=== PATIENT | male | born 1950 | race African-American/Black ===

== ENCOUNTER 2017-10-04 13:20 | Inpatient (IN) | payer MEDICARE, MEDICAID ==
[~2017-10-04] VITALS: Ht 172.7 cm; Wt 79.1 kg
[~2017-10-04 13:20] MED LIST: ACET-2178 PO; ASPI-986 PO; CALC0.253 PO; COR3 PO; DIPH25CA83 PO; DONE10TA43 PO; FAMO-134 PO; FERR325T23 PO; FOLI-43 PO; FURO-152 PO; INSU100V3 SUBCUT; KEPP500 PO; LISI10TA5 PO; MOM PO; SEVE800T8 PO
[2017-10-04] MEDS ORDERED: SODIUM CHLORIDE 0.9% 250 ML IV ONE (14:29)
[2017-10-04 15:51] LABS: HEMATOCRIT. 36.6 % (42.0-52.0); HEMOGLOBIN. 12.7 g/dL (14.0-18.0); MEAN CORPUSCULAR HEMOGLOBIN 30.1 pg (28.0-32.0); MEAN CORPUSCULAR VOLUME 86.8 fL (80.0-94.0); MEAN PLATELET VOLUME 8.3 fl (7.4-10.4); PLATELET 164 x1000/uL (130-400); RED BLOOD CELL COUNT 4.22 mill/uL (4.7-6.1); RED CELL DISTRIBUTION WIDTH 13.3 % (11.6-14.6)
[2017-10-04 16:08] LABS: CARBON DIOXIDE 29 mEq/L (21-32); CHLORIDE 99 mEq/L (98-107)
[2017-10-04 16:10] LABS: TROPONIN I < 0.02 ng/mL (0.00-0.04)
[2017-10-04 16:22] LABS: PLATELET ESTIMATE NORMAL
[2017-10-04 16:28] LABS: PROTHROMBIN TIME 10.4 sec (9.4-11.6)
[2017-10-04 20:00] VITALS: BP 86/50
[2017-10-04] MEDS ORDERED: ACETAMINOPHEN 325MG TABLET PO PRN (20:30)
[2017-10-04] MEDS ORDERED: ONDANSETRON HCL 4MG/2ML VIAL IV PRN (20:30)
[2017-10-04] MEDS ORDERED: DEXTROSE 50% WATER 50ML SYRINGE IV PRN (20:30)
[2017-10-04] MEDS: INSULIN LISPRO 100 UNITS/ML SUBCUT SCH (21:00)
[2017-10-04] MEDS: MIDODRINE HCL 2.5MG TABLET PO SCH (21:35)
[2017-10-04] MEDS: BLOOD SUGAR DIAGNOSTIC STRIP TEST SCH (21:36)
[2017-10-04 22:00] VITALS: BP 94/57
[2017-10-05] VITALS (12 sets, daily range): BP systolic 87–122; BP diastolic 43–85
[2017-10-05 06:46] LABS: HEMATOCRIT. 38.3 % (42.0-52.0); HEMOGLOBIN. 12.7 g/dL (14.0-18.0); MEAN CORPUSCULAR HEMOGLOBIN 29.6 pg (28.0-32.0); MEAN CORPUSCULAR VOLUME 89.3 fL (80.0-94.0); MEAN PLATELET VOLUME 8.5 fl (7.4-10.4); PLATELET 140 x1000/uL (130-400); RED BLOOD CELL COUNT 4.28 mill/uL (4.7-6.1); RED CELL DISTRIBUTION WIDTH 13.4 % (11.6-14.6)
[2017-10-05] MEDS: BLOOD SUGAR DIAGNOSTIC STRIP TEST SCH ×4 (07:30→21:17)
[2017-10-05] MEDS: INSULIN LISPRO 100 UNITS/ML SUBCUT SCH ×4 (08:00→21:00)
[2017-10-05] MEDS: ASPIRIN 81MG TABLET PO SCH (09:48)
[2017-10-05] MEDS: MIDODRINE HCL 2.5MG TABLET PO SCH ×2 (09:48→13:07)
[2017-10-05 17:46] LABS: PLATELET ESTIMATE NORMAL
[2017-10-06] VITALS (10 sets, daily range): BP systolic 103–147; BP diastolic 48–82
[2017-10-06] MEDS: BLOOD SUGAR DIAGNOSTIC STRIP TEST SCH ×4 (07:51→21:40)
[2017-10-06] MEDS: INSULIN LISPRO 100 UNITS/ML SUBCUT SCH ×4 (07:59→21:40)
[2017-10-06] MEDS: ASPIRIN 81MG TABLET PO SCH (09:18)
[2017-10-07] VITALS: BP 95/60
[2017-10-07 04:00] VITALS: BP 108/82
[2017-10-07 07:24] VITALS: BP 146/45
[2017-10-07] MEDS: INSULIN LISPRO 100 UNITS/ML SUBCUT SCH (08:00)
[2017-10-07] MEDS: BLOOD SUGAR DIAGNOSTIC STRIP TEST SCH (08:14)
[2017-10-07] MEDS: ASPIRIN 81MG TABLET PO SCH (08:17)
[2017-10-07 11:27] VITALS: BP 103/67
[2017-10-07 13:27] VITALS: BP 93/57
[2017-10-07 13:34] VITALS: BP 93/57
== END 2017-10-07 13:35 | DRG 466 ==
LOC: ER 13:24 → ENRESERV 16:07 → EDBEDREQSVC 17:09 → EDBEDREQ 17:09 → EDBEDREQSVC 17:24 → EDBEDREQ 17:26 → EDBEDREQTM 17:26 → 5EST 17:26 → EDBEDREQ 17:30 → EDBEDREQTM 17:30 → 5EST 10-06 13:17
PROVIDERS: ADMIT Hospitalist; ATTEND Hospitalist
PROC: 5A1D70Z Performance of Urinary Filtration, Intermittent, Less than 6 Hours Per Day (ICD-10-PCS; principal; 2017-10-06)
PROC: 02PYX3Z Removal of Infusion Device from Great Vessel, External Approach (ICD-10-PCS; 2017-10-07)
DX: T82.7XXA Infection and inflammatory reaction due to other cardiac and vascular devices, implants and grafts, initial encounter (principal); N18.6 End stage renal disease; A41.9 Sepsis, unspecified organism; E11.22 Type 2 diabetes mellitus with diabetic chronic kidney disease; I95.9 Hypotension, unspecified; I12.0 Hypertensive chronic kidney disease with stage 5 chronic kidney disease or end stage renal disease; Z86.73 Personal history of transient ischemic attack (TIA), and cerebral infarction without residual deficits; Z99.2 Dependence on renal dialysis; Z79.899 Other long term (current) drug therapy; Z79.82 Long term (current) use of aspirin; Z79.4 Long term (current) use of insulin; Y83.8 Other surgical procedures as the cause of abnormal reaction of the patient, or of later complication, without mention of misadventure at the time of the procedure; Y92.89 Other specified places as the place of occurrence of the external cause
CPT/HCPCS: 36415; 71010; 80048; 80053; 82962; 83605; 83880; 84484; 85025; 85610; 87040; 93005; 99285; J7030; J7050

== ENCOUNTER 2018-07-20 17:13 | Inpatient (IN) | payer MEDICARE, MEDICAID ==
[~2018-07-20] VITALS: Ht 167.6 cm; Wt 78.9 kg
[2018-07-20] MEDS ORDERED: ACETAMINOPHEN 325MG TABLET PO STA (17:52)
[2018-07-20] MEDS ORDERED: SODIUM CHLORIDE 0.9% 1,000 ML IV ONE (17:52)
[2018-07-20] MEDS ORDERED: PIPERACILLIN/TAZ 3.375G PREMIX 50 ML IV ONE (18:00)
[2018-07-20] MEDS ORDERED: VANCOMYCIN 1 G PREMIX 200 ML IV ONE (18:00)
[2018-07-20 18:56] LABS: HEMATOCRIT. 36.5 % (42.0-52.0); HEMOGLOBIN. 12.5 g/dL (14.0-18.0); MEAN CORPUSCULAR HEMOGLOBIN 28.9 pg (28.0-32.0); MEAN CORPUSCULAR VOLUME 83.9 fL (80.0-94.0); MEAN PLATELET VOLUME 7.8 fl (7.4-10.4); PLATELET 127 x1000/uL (130-400); RED BLOOD CELL COUNT 4.35 mill/uL (4.7-6.1); RED CELL DISTRIBUTION WIDTH 13.1 % (11.6-14.6)
[2018-07-20 19:00] LABS: PROTHROMBIN TIME 10.4 sec (9.1-11.1)
[2018-07-20 19:01] LABS: CHLORIDE 99 mEq/L (98-107)
[2018-07-20] MEDS ORDERED: ONDANSETRON HCL 4MG/2ML INJ IV PRN (20:30)
[2018-07-20] MEDS ORDERED: DIPHENHYDRAMINE 50MG/ML VIAL IV PRN (20:30)
[2018-07-20 21:48] LABS: PLATELET ESTIMATE SLIGHTLY DECREASED
[2018-07-20 22:50] VITALS: BP 103/54
[2018-07-20 23:22] VITALS: BP 103/54
[2018-07-21 04:00] VITALS: BP 134/73
[2018-07-21] MEDS ORDERED: DEXTROSE 50% WATER 50ML SYRINGE IV PRN (05:45)
[2018-07-21] MEDS: INSULIN LISPRO 100 UNITS/ML SUBCUT SCH ×4 (06:15→21:06)
[2018-07-21] MEDS: BLOOD SUGAR DIAGNOSTIC STRIP TEST SCH ×4 (06:15→21:01)
[2018-07-21 07:52] VITALS: BP 105/56
[2018-07-21] MEDS: ENOXAPARIN 30MG/0.3ML SYR SUBCUT SCH (08:14)
[2018-07-21] MEDS ORDERED: HEPARIN SODIUM 1,000 UNIT/1ML VIAL IV SCH ×2 (11:00)
[2018-07-21 11:16] LABS: BASOPHILS % 0.4 % (0.0-2.0); EOSINOPHILS % 0.1 % (0.0-5.0); HEMATOCRIT. 32.2 % (42.0-52.0); HEMOGLOBIN. 11.2 g/dL (14.0-18.0); LYMPHOCYTES % 7.2 % (20.0-50.0); MEAN CORPUSCULAR HEMOGLOBIN 29.1 pg (28.0-32.0); MEAN PLATELET VOLUME 8.2 fl (7.4-10.4); MONOCYTES % 6.9 % (2.0-8.0); NEUTROPHILS % 85.4 % (40.0-76.0); PLATELET 105 x1000/uL (130-400); RED BLOOD CELL COUNT 3.83 mill/uL (4.7-6.1); RED CELL DISTRIBUTION WIDTH 13.2 % (11.6-14.6)
[2018-07-21 11:52] VITALS: BP 111/57
[2018-07-21] MEDS: DEXT 5%/0.45% NACL 1000ML 1,000 ML IV SCH (13:53)
[2018-07-21] MEDS ORDERED: PIPERACILLIN/TAZOBACTAM 2.25 G in DEXTROSE 5% WATER 50 ML IV SCH (14:00)
[2018-07-21 16:00] VITALS: BP 89/44
[2018-07-21] MEDS ORDERED: VANCOMYCIN 1 G PREMIX 200 ML IV NR (16:00)
[2018-07-21] MEDS ORDERED: VANCOMYCIN 1250MG in DEXTROSE 5% WATER 250ML IV NR (16:00)
[2018-07-21 18:00] VITALS: BP 100/56
[2018-07-21 20:00] VITALS: BP 110/54
[2018-07-21] MEDS ORDERED: PIPERACILLIN/TAZ 2.25G PREMIX 50 ML IV SCH (22:00)
[2018-07-22] VITALS: BP 102/59
[2018-07-22 04:00] VITALS: BP 100/52
[2018-07-22] MEDS: BLOOD SUGAR DIAGNOSTIC STRIP TEST SCH ×4 (06:38→21:00)
[2018-07-22] MEDS: INSULIN LISPRO 100 UNITS/ML SUBCUT SCH ×4 (06:38→21:06)
[2018-07-22 07:35] LABS: HEMATOCRIT. 32.6 % (42.0-52.0); HEMOGLOBIN. 11.2 g/dL (14.0-18.0); MEAN CORPUSCULAR HEMOGLOBIN 29.1 pg (28.0-32.0); MEAN CORPUSCULAR VOLUME 84.6 fL (80.0-94.0); MEAN PLATELET VOLUME 7.7 fl (7.4-10.4); PLATELET 106 x1000/uL (130-400); RED BLOOD CELL COUNT 3.86 mill/uL (4.7-6.1); RED CELL DISTRIBUTION WIDTH 13.3 % (11.6-14.6)
[2018-07-22 08:00] VITALS: BP 104/50
[2018-07-22] MEDS: ENOXAPARIN 30MG/0.3ML SYR SUBCUT SCH (08:51)
[2018-07-22 12:00] VITALS: BP 106/58
[2018-07-22] MEDS: DEXT 5%/0.45% NACL 1000ML 1,000 ML IV SCH (12:35)
[2018-07-22 14:27] LABS: PLATELET ESTIMATE SLIGHTLY DECREASED
[2018-07-22 16:00] VITALS: BP 101/66
[2018-07-22 20:00] VITALS: BP 97/49
[2018-07-22] MEDS: ACETAMINOPHEN 325MG TABLET PO PRN (21:26)
[2018-07-23] VITALS (7 sets, daily range): BP systolic 101–115; BP diastolic 53–68
[2018-07-23] MEDS: DEXT 5%/0.45% NACL 1000ML 1,000 ML IV SCH ×2 (05:17→21:30)
[2018-07-23] MEDS: BLOOD SUGAR DIAGNOSTIC STRIP TEST SCH ×4 (06:10→20:53)
[2018-07-23 07:23] LABS: HEMATOCRIT. 33.7 % (42.0-52.0); HEMOGLOBIN. 11.3 g/dL (14.0-18.0); MEAN CORPUSCULAR HEMOGLOBIN 29.2 pg (28.0-32.0); MEAN CORPUSCULAR VOLUME 86.8 fL (80.0-94.0); MEAN PLATELET VOLUME 7.9 fl (7.4-10.4); PLATELET 61 x1000/uL (130-400); RED BLOOD CELL COUNT 3.88 mill/uL (4.7-6.1); RED CELL DISTRIBUTION WIDTH 13.4 % (11.6-14.6)
[2018-07-23] MEDS: INSULIN LISPRO 100 UNITS/ML SUBCUT SCH ×4 (07:40→21:01)
[2018-07-23] MEDS: ENOXAPARIN 30MG/0.3ML SYR SUBCUT SCH (08:05)
[2018-07-23 12:59] LABS: PLATELET ESTIMATE DECREASED
[2018-07-23] MEDS ORDERED: VANCOMYCIN 1 G PREMIX 200 ML IV SCH (13:30)
[2018-07-23] MEDS ORDERED: LIDOCAINE HCL/PF 1% 10 MG/ML 30ML VIAL ONE (14:42)
[2018-07-23] MEDS ORDERED: SODIUM BICARBONATE 4% (2.4MEQ) 5ML VIAL IV ONE (14:43)
[2018-07-24] VITALS (7 sets, daily range): BP systolic 98–163; BP diastolic 54–78
[2018-07-24 07:05] LABS: BASOPHILS % 0.4 % (0.0-2.0); EOSINOPHILS % 3.5 % (0.0-5.0); HEMATOCRIT. 30.5 % (42.0-52.0); HEMOGLOBIN. 10.5 g/dL (14.0-18.0); LYMPHOCYTES % 13.1 % (20.0-50.0); MEAN CORPUSCULAR HEMOGLOBIN 29.4 pg (28.0-32.0); MEAN CORPUSCULAR VOLUME 85.1 fL (80.0-94.0); MEAN PLATELET VOLUME 7.8 fl (7.4-10.4); MONOCYTES % 11.9 % (2.0-8.0); NEUTROPHILS % 71.1 % (40.0-76.0); PLATELET 131 x1000/uL (130-400); RED BLOOD CELL COUNT 3.58 mill/uL (4.7-6.1); RED CELL DISTRIBUTION WIDTH 13.1 % (11.6-14.6)
[2018-07-24] MEDS: BLOOD SUGAR DIAGNOSTIC STRIP TEST SCH ×4 (07:10→20:35)
[2018-07-24] MEDS: INSULIN LISPRO 100 UNITS/ML SUBCUT SCH ×4 (07:40→20:34)
[2018-07-25 00:05] VITALS: BP 138/60
[2018-07-25] MEDS: BLOOD SUGAR DIAGNOSTIC STRIP TEST SCH ×4 (05:57→20:31)
[2018-07-25 08:00] VITALS: BP 131/61
[2018-07-25] MEDS: INSULIN LISPRO 100 UNITS/ML SUBCUT SCH ×4 (12:00→21:00)
[2018-07-25 12:21] VITALS: BP 131/61
[2018-07-25] MEDS: DEXT 5%/0.45% NACL 1000ML 1,000 ML IV SCH ×2 (13:30→18:11)
[2018-07-25] MEDS ORDERED: DAPTOMYCIN XX SCH (13:45)
[2018-07-25] MEDS ORDERED: [UNRECOGNIZED DRUG - OTHER] XX SCH (13:45)
[2018-07-25 16:21] VITALS: BP 116/62
[2018-07-25] MEDS: DAPTOMYCIN 450 MG in SODIUM CHLORIDE 0.9% 50 ML IV SCH (18:11)
[2018-07-25 20:00] VITALS: BP 118/65
[2018-07-26] VITALS: BP 147/56
[2018-07-26 04:00] VITALS: BP 147/69
[2018-07-26] MEDS: BLOOD SUGAR DIAGNOSTIC STRIP TEST SCH ×4 (05:44→20:39)
[2018-07-26] MEDS: INSULIN LISPRO 100 UNITS/ML SUBCUT SCH ×4 (05:48→21:00)
[2018-07-26 07:01] LABS: BASOPHILS % 0.6 % (0.0-2.0); EOSINOPHILS % 4.1 % (0.0-5.0); HEMATOCRIT. 30.1 % (42.0-52.0); HEMOGLOBIN. 10.3 g/dL (14.0-18.0); LYMPHOCYTES % 18.5 % (20.0-50.0); MEAN CORPUSCULAR HEMOGLOBIN 29.1 pg (28.0-32.0); MEAN CORPUSCULAR VOLUME 84.5 fL (80.0-94.0); MEAN PLATELET VOLUME 7.5 fl (7.4-10.4); MONOCYTES % 11.5 % (2.0-8.0); NEUTROPHILS % 65.3 % (40.0-76.0); PLATELET 155 x1000/uL (130-400); RED BLOOD CELL COUNT 3.56 mill/uL (4.7-6.1); RED CELL DISTRIBUTION WIDTH 13.4 % (11.6-14.6)
[2018-07-26 08:00] VITALS: BP 139/77
[2018-07-26 08:10] LABS: CREATINE KINASE 35 IU/L (39-308)
[2018-07-26] MEDS ORDERED: SODIUM BICARBONATE 4% (2.4MEQ) 5ML VIAL IV ONE (10:35)
[2018-07-26] MEDS ORDERED: LIDOCAINE HCL 1% 10 MG/ML 10ML VIAL ONE (10:36)
[2018-07-26 12:00] VITALS: BP 124/54
[2018-07-26 16:00] VITALS: BP 122/60
[2018-07-26 20:00] VITALS: BP 137/83
[2018-07-27] VITALS: BP 150/73
[2018-07-27 04:00] VITALS: BP 134/68
[2018-07-27] MEDS: BLOOD SUGAR DIAGNOSTIC STRIP TEST SCH ×4 (06:12→20:01)
[2018-07-27] MEDS: INSULIN LISPRO 100 UNITS/ML SUBCUT SCH ×4 (06:15→20:46)
[2018-07-27 06:44] LABS: BASOPHILS % 0.7 % (0.0-2.0); EOSINOPHILS % 4.4 % (0.0-5.0); HEMOGLOBIN. 9.8 g/dL (14.0-18.0); LYMPHOCYTES % 19.4 % (20.0-50.0); MEAN CORPUSCULAR HEMOGLOBIN 29.3 pg (28.0-32.0); MEAN CORPUSCULAR VOLUME 83.9 fL (80.0-94.0); MEAN PLATELET VOLUME 7.2 fl (7.4-10.4); MONOCYTES % 13.2 % (2.0-8.0); NEUTROPHILS % 62.3 % (40.0-76.0); PLATELET 161 x1000/uL (130-400); RED BLOOD CELL COUNT 3.34 mill/uL (4.7-6.1)
[2018-07-27 08:00] VITALS: BP 144/71
[2018-07-27] MEDS: DAPTOMYCIN 450 MG in SODIUM CHLORIDE 0.9% 50 ML IV SCH (09:00)
[2018-07-27 12:00] VITALS: BP 134/77
[2018-07-27 16:37] VITALS: BP 143/72
[2018-07-27] MEDS: ENOXAPARIN 30MG/0.3ML SYR SUBCUT SCH (17:58)
[2018-07-27 20:00] VITALS: BP 143/68
[2018-07-28] VITALS: BP 143/74
[2018-07-28 04:00] VITALS: BP 119/51
[2018-07-28] MEDS: INSULIN LISPRO 100 UNITS/ML SUBCUT SCH ×4 (06:10→21:00)
[2018-07-28] MEDS: BLOOD SUGAR DIAGNOSTIC STRIP TEST SCH ×4 (06:10→21:00)
[2018-07-28 08:00] VITALS: BP 143/70
[2018-07-28 12:10] VITALS: BP 135/74
[2018-07-28] MEDS: ENOXAPARIN 30MG/0.3ML SYR SUBCUT SCH (17:39)
[2018-07-28 18:30] VITALS: BP 141/70
[2018-07-28 20:00] VITALS: BP 145/74
[2018-07-29] VITALS: BP 148/80
[2018-07-29 04:00] VITALS: BP 138/76
[2018-07-29] MEDS: BLOOD SUGAR DIAGNOSTIC STRIP TEST SCH ×4 (05:20→21:00)
[2018-07-29 06:04] LABS: BASOPHILS % 0.5 % (0.0-2.0); EOSINOPHILS % 5.4 % (0.0-5.0); HEMATOCRIT. 28.9 % (42.0-52.0); HEMOGLOBIN. 10.2 g/dL (14.0-18.0); LYMPHOCYTES % 20.3 % (20.0-50.0); MEAN CORPUSCULAR HEMOGLOBIN 29.4 pg (28.0-32.0); MEAN CORPUSCULAR VOLUME 83.5 fL (80.0-94.0); MEAN PLATELET VOLUME 7.4 fl (7.4-10.4); MONOCYTES % 10.1 % (2.0-8.0); NEUTROPHILS % 63.7 % (40.0-76.0); PLATELET 228 x1000/uL (130-400); RED BLOOD CELL COUNT 3.46 mill/uL (4.7-6.1); RED CELL DISTRIBUTION WIDTH 13.3 % (11.6-14.6)
[2018-07-29] MEDS: INSULIN LISPRO 100 UNITS/ML SUBCUT SCH ×4 (06:05→21:00)
[2018-07-29 08:00] VITALS: BP 146/77
[2018-07-29] MEDS: DAPTOMYCIN 450 MG in SODIUM CHLORIDE 0.9% 50 ML IV SCH (08:40)
[2018-07-29 12:00] VITALS: BP 134/50
[2018-07-29 16:00] VITALS: BP 143/78
[2018-07-29] MEDS: ENOXAPARIN 30MG/0.3ML SYR SUBCUT SCH (16:48)
[2018-07-29 20:00] VITALS: BP 134/72
[2018-07-29] MEDS ORDERED: EPOETIN ALFA 10000UNITS/ML VIAL SUBCUT SCH (21:00)
[2018-07-30] VITALS: BP 143/68
[2018-07-30 04:00] VITALS: BP 140/72
[2018-07-30] MEDS: BLOOD SUGAR DIAGNOSTIC STRIP TEST SCH ×4 (06:39→21:00)
[2018-07-30] MEDS: INSULIN LISPRO 100 UNITS/ML SUBCUT SCH ×3 (06:39→17:40)
[2018-07-30 07:28] LABS: INR 1.1; PARTIAL THROMBOPLASTIN TIME 38.3 sec (23.4-31.0); PROTHROMBIN TIME 10.9 sec (9.1-11.1)
[2018-07-30 08:00] VITALS: BP 134/56
[2018-07-30 12:00] VITALS: BP 118/62
[2018-07-30 16:00] VITALS: BP 133/78
[2018-07-30] MEDS: ENOXAPARIN 30MG/0.3ML SYR SUBCUT SCH (18:47)
[2018-07-30 20:00] VITALS: BP 138/85
[2018-07-31] VITALS (7 sets, daily range): BP systolic 130–157; BP diastolic 53–87
[2018-07-31] MEDS: BLOOD SUGAR DIAGNOSTIC STRIP TEST SCH ×4 (07:10→21:00)
[2018-07-31] MEDS: INSULIN LISPRO 100 UNITS/ML SUBCUT SCH ×4 (07:40→22:12)
[2018-07-31] MEDS: DAPTOMYCIN 450 MG in SODIUM CHLORIDE 0.9% 50 ML IV SCH (11:18)
[2018-07-31] MEDS: ENOXAPARIN 30MG/0.3ML SYR SUBCUT SCH (18:14)
[2018-08-01 04:00] VITALS: BP 136/71
[2018-08-01] MEDS: BLOOD SUGAR DIAGNOSTIC STRIP TEST SCH ×4 (06:42→21:15)
[2018-08-01] MEDS: INSULIN LISPRO 100 UNITS/ML SUBCUT SCH ×4 (06:43→21:00)
[2018-08-01 06:46] LABS: BASOPHILS % 0.4 % (0.0-2.0); EOSINOPHILS % 2.2 % (0.0-5.0); HEMATOCRIT. 30.8 % (42.0-52.0); HEMOGLOBIN. 10.6 g/dL (14.0-18.0); LYMPHOCYTES % 11.6 % (20.0-50.0); MEAN CORPUSCULAR HEMOGLOBIN 28.5 pg (28.0-32.0); MEAN CORPUSCULAR VOLUME 83.1 fL (80.0-94.0); MEAN PLATELET VOLUME 7.3 fl (7.4-10.4); MONOCYTES % 7.9 % (2.0-8.0); NEUTROPHILS % 77.9 % (40.0-76.0); PLATELET 222 x1000/uL (130-400); RED BLOOD CELL COUNT 3.71 mill/uL (4.7-6.1); RED CELL DISTRIBUTION WIDTH 13.3 % (11.6-14.6)
[2018-08-01 08:00] VITALS: BP 125/51
[2018-08-01 12:00] VITALS: BP 133/86
[2018-08-01] MEDS ORDERED: HEPARIN SODIUM 1,000 UNIT/1ML VIAL IV SCH (12:15)
[2018-08-01 16:00] VITALS: BP 173/66
[2018-08-01] MEDS: ENOXAPARIN 30MG/0.3ML SYR SUBCUT SCH (18:12)
[2018-08-01 20:04] VITALS: BP 166/80
[2018-08-02] VITALS: BP 150/70
[2018-08-02 04:00] VITALS: BP 169/75
[2018-08-02] MEDS: BLOOD SUGAR DIAGNOSTIC STRIP TEST SCH ×4 (07:10→20:22)
[2018-08-02] MEDS: INSULIN LISPRO 100 UNITS/ML SUBCUT SCH ×4 (07:40→20:22)
[2018-08-02 08:00] VITALS: BP 140/91
[2018-08-02] MEDS ORDERED: LIDOCAINE HCL 1% 10 MG/ML 10ML VIAL ONE ×2 (08:08→11:45)
[2018-08-02] MEDS ORDERED: THROMBIN (BOVINE) 5000 UNITS/VIAL TOP ONE ×2 (08:08→11:45)
[2018-08-02] MEDS ORDERED: BACITRACIN ZINC 15GM TUBE TOP ONE ×2 (08:08→11:44)
[2018-08-02] MEDS ORDERED: BUPIVACAINE HCL/PF 0.5% (5MG/ML) 10ML ONE ×2 (08:09→11:44)
[2018-08-02] MEDS ORDERED: HEPARIN SODIUM 1,000 UNIT/1ML VIAL IV ONE ×2 (08:09→11:45)
[2018-08-02] MEDS ORDERED: NORMAL SALINE 0.9% 10 ML SYR ONE ×2 (08:09→11:45)
[2018-08-02] MEDS ORDERED: GELATIN SPONGE,COMPRESSED SZ 100 ONE ×2 (08:10→11:45)
[2018-08-02] MEDS ORDERED: BACITRACIN 50,000 UNITS/VIAL ONE ×2 (08:10→11:31)
[2018-08-02] MEDS ORDERED: SODIUM CHLORIDE 0.9% 1,000 ML ONE (08:10)
[2018-08-02 12:00] VITALS: BP 164/86
[2018-08-02] MEDS ORDERED: PROPOFOL 200MG/20ML VIAL IV ONE ×2 (12:34→13:37)
[2018-08-02] MEDS ORDERED: FENTANYL CITRATE/PF 50MCG/ML 2ML VIAL ONE ×2 (12:34→13:38)
[2018-08-02] MEDS ORDERED: MIDAZOLAM HCL 2 MG/2 ML VIAL ONE (12:34)
[2018-08-02] MEDS ORDERED: ROCURONIUM BROMIDE 10MG/ML VIAL 5ML IV ONE (13:11)
[2018-08-02] MEDS ORDERED: DEXAMETHASONE 4MG/ML 1ML VIAL ONE (13:11)
[2018-08-02] MEDS ORDERED: ONDANSETRON HCL 4MG/2ML INJ ONE (13:11)
[2018-08-02] MEDS ORDERED: LABETALOL 5MG/ML SYR 20 MG/4 ML SYRINGE IV PRN (13:15)
[2018-08-02] MEDS ORDERED: ONDANSETRON HCL 4MG/2ML INJ IV PRN (13:15)
[2018-08-02] MEDS ORDERED: HYDROMORPHONE HCL/PF 2MG/ML CPJ IV PRN (13:15)
[2018-08-02] MEDS ORDERED: MEPERIDINE HCL/PF 25MG/ML CPJ IV PRN (13:15)
[2018-08-02] MEDS ORDERED: GLYCOPYRROLATE 0.2 MG/ML 2ML VIAL ONE (14:15)
[2018-08-02] MEDS ORDERED: NEOSTIGMINE METHYLSULFATE 1MG/ML 10 ML VIAL ONE (14:15)
[2018-08-02] MEDS ORDERED: LABETALOL HCL 5MG/ML VIAL 20ML IV ONE (14:40)
[2018-08-02] MEDS: ENOXAPARIN 30MG/0.3ML SYR SUBCUT SCH (17:00)
[2018-08-02] MEDS: DAPTOMYCIN 450 MG in SODIUM CHLORIDE 0.9% 50 ML IV SCH (19:06)
[2018-08-02 20:00] VITALS: BP 150/79
[2018-08-03] VITALS: BP 149/80
[2018-08-03 04:00] VITALS: BP 137/76
[2018-08-03] MEDS: BLOOD SUGAR DIAGNOSTIC STRIP TEST SCH ×4 (06:20→20:24)
[2018-08-03] MEDS: INSULIN LISPRO 100 UNITS/ML SUBCUT SCH ×4 (06:23→20:43)
[2018-08-03 08:00] VITALS: BP 120/73
[2018-08-03 10:24] LABS: HEMOGLOBIN. 10.3 g/dL (14.0-18.0); MEAN CORPUSCULAR HEMOGLOBIN 28.7 pg (28.0-32.0); MEAN CORPUSCULAR VOLUME 83.7 fL (80.0-94.0); MEAN PLATELET VOLUME 7.6 fl (7.4-10.4); PLATELET 238 x1000/uL (130-400); RED BLOOD CELL COUNT 3.59 mill/uL (4.7-6.1); RED CELL DISTRIBUTION WIDTH 13.3 % (11.6-14.6)
[2018-08-03 11:01] LABS: PLATELET ESTIMATE NORMAL
[2018-08-03 12:00] VITALS: BP 112/74
[2018-08-03 16:00] VITALS: BP 115/65
[2018-08-03] MEDS: ENOXAPARIN 30MG/0.3ML SYR SUBCUT SCH (17:07)
[2018-08-03 20:00] VITALS: BP 100/61
[2018-08-04] VITALS: BP 111/75
[2018-08-04 04:00] VITALS: BP 101/69
[2018-08-04 06:31] LABS: BASOPHILS % 0.3 % (0.0-2.0); EOSINOPHILS % 0.5 % (0.0-5.0); HEMATOCRIT. 29.3 % (42.0-52.0); HEMOGLOBIN. 10.1 g/dL (14.0-18.0); LYMPHOCYTES % 7.7 % (20.0-50.0); MEAN CORPUSCULAR HEMOGLOBIN 29.1 pg (28.0-32.0); MEAN PLATELET VOLUME 7.3 fl (7.4-10.4); MONOCYTES % 8.9 % (2.0-8.0); NEUTROPHILS % 82.6 % (40.0-76.0); PLATELET 220 x1000/uL (130-400); RED BLOOD CELL COUNT 3.48 mill/uL (4.7-6.1); RED CELL DISTRIBUTION WIDTH 13.4 % (11.6-14.6)
[2018-08-04] MEDS: INSULIN LISPRO 100 UNITS/ML SUBCUT SCH ×4 (06:35→20:52)
[2018-08-04] MEDS: BLOOD SUGAR DIAGNOSTIC STRIP TEST SCH ×4 (06:35→20:36)
[2018-08-04 08:00] VITALS: BP 120/67
[2018-08-04 16:00] VITALS: BP 116/68
[2018-08-04] MEDS: ENOXAPARIN 30MG/0.3ML SYR SUBCUT SCH (18:17)
[2018-08-04] MEDS: ACETAMINOPHEN 325MG TABLET PO PRN (19:33)
[2018-08-04] MEDS: DAPTOMYCIN 450 MG in SODIUM CHLORIDE 0.9% 50 ML IV SCH (19:53)
[2018-08-04 20:00] VITALS: BP 136/73
[2018-08-05] VITALS (7 sets, daily range): BP systolic 115–151; BP diastolic 61–86
[2018-08-05] MEDS: INSULIN LISPRO 100 UNITS/ML SUBCUT SCH ×3 (06:22→16:23)
[2018-08-05] MEDS: BLOOD SUGAR DIAGNOSTIC STRIP TEST SCH ×3 (06:22→16:23)
[2018-08-05 07:35] LABS: EOSINOPHILS % 1.1 % (0.0-5.0); HEMATOCRIT. 29.2 % (42.0-52.0); LYMPHOCYTES % 14.4 % (20.0-50.0); MEAN CORPUSCULAR HEMOGLOBIN 28.9 pg (28.0-32.0); MEAN CORPUSCULAR VOLUME 84.7 fL (80.0-94.0); MEAN PLATELET VOLUME 7.3 fl (7.4-10.4); MONOCYTES % 11.3 % (2.0-8.0); NEUTROPHILS % 72.2 % (40.0-76.0); PLATELET 189 x1000/uL (130-400); RED BLOOD CELL COUNT 3.44 mill/uL (4.7-6.1); RED CELL DISTRIBUTION WIDTH 13.4 % (11.6-14.6)
[2018-08-05] MEDS: ENOXAPARIN 30MG/0.3ML SYR SUBCUT SCH (17:41)
== END 2018-08-05 21:03 | DRG 182 ==
LOC: ER 17:13 → 8WST 20:23 → EDBEDREQTM 20:27 → EDBEDREQ 20:27 → CANRESERV 21:25 → ENRESERV 21:25 → EDBEDREQSVC 22:06 → ENRESERV 22:06
PROVIDERS: ADMIT Internal Medicine Nephrology; ATTEND Internal Medicine Nephrology
PROC: 0JPT3XZ Removal of Tunneled Vascular Access Device from Trunk Subcutaneous Tissue and Fascia, Percutaneous Approach (ICD-10-PCS; 2018-07-23)
PROC: 05PYX3Z Removal of Infusion Device from Upper Vein, External Approach (ICD-10-PCS; 2018-07-23)
PROC: 5A1D70Z Performance of Urinary Filtration, Intermittent, Less than 6 Hours Per Day (ICD-10-PCS; 2018-07-23)
PROC: 05H633Z Insertion of Infusion Device into Left Subclavian Vein, Percutaneous Approach (ICD-10-PCS; 2018-07-26)
PROC: B5171ZA Fluoroscopy of Left Subclavian Vein using Low Osmolar Contrast, Guidance (ICD-10-PCS; 2018-07-26)
PROC: B547ZZA Ultrasonography of Left Subclavian Vein, Guidance (ICD-10-PCS; 2018-07-26)
PROC: 0JH63XZ Insertion of Tunneled Vascular Access Device into Chest Subcutaneous Tissue and Fascia, Percutaneous Approach (ICD-10-PCS; 2018-07-30)
PROC: 06H033Z Insertion of Infusion Device into Inferior Vena Cava, Percutaneous Approach (ICD-10-PCS; 2018-07-30)
PROC: B5191ZA Fluoroscopy of Inferior Vena Cava using Low Osmolar Contrast, Guidance (ICD-10-PCS; 2018-07-30)
PROC: B549ZZA Ultrasonography of Inferior Vena Cava, Guidance (ICD-10-PCS; 2018-07-30)
PROC: B51V1ZZ Fluoroscopy of Other Veins using Low Osmolar Contrast (ICD-10-PCS; 2018-07-30)
PROC: 5A1D70Z Performance of Urinary Filtration, Intermittent, Less than 6 Hours Per Day (ICD-10-PCS; 2018-07-30)
PROC: 5A1D70Z Performance of Urinary Filtration, Intermittent, Less than 6 Hours Per Day (ICD-10-PCS; 2018-08-01)
PROC: 03BY0ZZ Excision of Upper Artery, Open Approach (ICD-10-PCS; 2018-08-02)
PROC: 03PY0JZ Removal of Synthetic Substitute from Upper Artery, Open Approach (ICD-10-PCS; principal; 2018-08-02 12:00)
PROC: 5A1D70Z Performance of Urinary Filtration, Intermittent, Less than 6 Hours Per Day (ICD-10-PCS; 2018-08-03)
PROC: 5A1D70Z Performance of Urinary Filtration, Intermittent, Less than 6 Hours Per Day (ICD-10-PCS; 2018-08-05)
DX: T82.7XXA Infection and inflammatory reaction due to other cardiac and vascular devices, implants and grafts, initial encounter (principal); A41.02 Sepsis due to Methicillin resistant Staphylococcus aureus; I13.2 Hypertensive heart and chronic kidney disease with heart failure and with stage 5 chronic kidney disease, or end stage renal disease; E87.2 Acidosis; E46 Unspecified protein-calorie malnutrition; I95.9 Hypotension, unspecified; E11.22 Type 2 diabetes mellitus with diabetic chronic kidney disease; E11.621 Type 2 diabetes mellitus with foot ulcer; I50.9 Heart failure, unspecified; T80.211A Bloodstream infection due to central venous catheter, initial encounter; B35.1 Tinea unguium; N18.6 End stage renal disease; L97.529 Non-pressure chronic ulcer of other part of left foot with unspecified severity; L02.414 Cutaneous abscess of left upper limb; D64.9 Anemia, unspecified; E78.00 Pure hypercholesterolemia, unspecified; E78.5 Hyperlipidemia, unspecified; F03.90 Unspecified dementia, unspecified severity, without behavioral disturbance, psychotic disturbance, mood disturbance, and anxiety; G40.909 Epilepsy, unspecified, not intractable, without status epilepticus; Y84.8 Other medical procedures as the cause of abnormal reaction of the patient, or of later complication, without mention of misadventure at the time of the procedure; L60.3 Nail dystrophy; B95.8 Unspecified staphylococcus as the cause of diseases classified elsewhere; Y83.8 Other surgical procedures as the cause of abnormal reaction of the patient, or of later complication, without mention of misadventure at the time of the procedure; Z99.2 Dependence on renal dialysis; Z79.4 Long term (current) use of insulin; I69.351 Hemiplegia and hemiparesis following cerebral infarction affecting right dominant side; Z22.322 Carrier or suspected carrier of Methicillin resistant Staphylococcus aureus; Y92.89 Other specified places as the place of occurrence of the external cause; Z79.899 Other long term (current) drug therapy; Z68.28 Body mass index [BMI] 28.0-28.9, adult
CPT/HCPCS: 36415; 36558; 36569; 36589; 71045; 75825; 76881; 76937; 77001; 80048; 80051; 80053; 80202; 82550; 82962; 83605; 84484; 85025; 85610; 85730; 87040; 87070; 87075; 87077; 87205; 88304; 92610; 93005; 93306; 96365; 96366; 96368; 99291; A4216; C1725; C1750; C1769; C1893; J0878; J1100; J1644; J1650; J1815; J2250; J2405; J2543; J2704; J2710; J3010; J3370; J3490; J7030; J7040; J7050; J7060; L8514